=== PATIENT | female | born 1965 | race Caucasian/White ===

== ENCOUNTER 2016-12-08 08:47 | Inpatient (IN) | payer OTHER ==
[2016-12-08] MEDS ORDERED: ALBUMIN HUMAN 25 GM/100 ML SOL IV ONE (13:04)
[2016-12-08] MEDS ORDERED: HEPARIN 500 Unit PRE-FILL 100 U/ML SOL IV PRN (13:07)
[2016-12-08 13:59] VITALS: RESP 16; TEMP 98.8
[2016-12-08] MEDS ORDERED: ALBUMIN HUMAN 200 ML IV ONE (15:21)
[2016-12-08 15:27] VITALS: BP 129/81; PULSE 124; O2SAT 100
== END 2016-12-08 14:30 | disposition home or self-care (01) | DRG 948 ==
LOC: ACUTE CARE 11:46
PROVIDERS: ADMIT Family Medicine; ATTEND Family Medicine
PROC: 0W9G3ZZ Drainage of Peritoneal Cavity, Percutaneous Approach (ICD-10-PCS; principal; 2016-12-08)
DX: R18.0 Malignant ascites (principal); C22.1 Intrahepatic bile duct carcinoma
CPT/HCPCS: 99070; J1644; P9047

== ENCOUNTER 2016-12-17 11:26 | Inpatient (IN) | payer OTHER ==
[2016-12-17 12:07] VITALS: RESP 14; TEMP 97.2
[2016-12-17] MEDS ORDERED: ALBUMIN HUMAN 25 GM/100 ML SOL IV ONE (12:37)
[2016-12-17] MEDS ORDERED: BACITRACIN 500 U/GM OIN TOP ONE (12:39)
[2016-12-17] MEDS ORDERED: BACITRACIN 500 U/GM OIN TOP SCH (12:40)
[2016-12-17] MEDS ORDERED: ALBUMIN HUMAN 200 ML IV ONE (13:30)
[2016-12-17 14:00] VITALS: O2SAT 100
[2016-12-17] MEDS ORDERED: HEPARIN SODIUM 100 U/ML SOL IV ONE (14:17)
[2016-12-17] MEDS ORDERED: HEPARIN 500 Unit PRE-FILL 100 U/ML SOL IV PRN (14:22)
[2016-12-17] MEDS ORDERED: SODIUM CHLORIDE 0.9% FLUSH 10 ML SOL IV SCH (14:30)
[2016-12-17 14:43] VITALS: BP 108/72; PULSE 120
== END 2016-12-17 14:20 | disposition home or self-care (01) | DRG 436 ==
LOC: ACUTE CARE 11:26
PROVIDERS: ADMIT Family Medicine; ATTEND Family Medicine
PROC: 0W9G3ZZ Drainage of Peritoneal Cavity, Percutaneous Approach (ICD-10-PCS; principal; 2016-12-17)
DX: C22.1 Intrahepatic bile duct carcinoma (principal); R18.0 Malignant ascites
CPT/HCPCS: 99070; J1644; P9047